=== PATIENT | female | born 2000 | race Two or more races ===

== ENCOUNTER 2019-09-01 00:12 | Emergency (ER) | payer BC ==
[~2019-09-01] VITALS: Ht 160 cm; Wt 54.4 kg
--- NOTE | 2019-09-01 01:20 | NUR ---
PT PRESENTED TO THE ER WITH A C/O PAIN AND BURNING WITH URINATION AND HEMATURIA. PT AMBULATED TO THE BATHROOM WITH A STEADY GAIT. URINE SAMPLE OBTAINED AND SENT TO LAB. PT AMBULATED TO ER 4 AND IS AWAITING EVAL BY
[2019-09-01 01:52] LABS: APPEARANCE,URINE Turbid (CLEAR); BILIRUBIN,URINE LARGE (NEGATIVE); BLOOD, URINE Large Ery/uL (NEGATIVE); COLOR,URINE Red (YELLOW); KETONES,URINE 40 (NEGATIVE); LEUKOCYTE ESTERASE ,URINE Large (NEGATIVE); NITRITE, URINE Negative (NEGATIVE); PH,URINE 5.5 (5.0-8.0); PROTEIN,URINE >=300 mg/dl (NEGATIVE); UGLUCOSE Negative (NEGATIVE)
[2019-09-01 02:09] LABS: BACTERIA,URINE Few /HPF (None Seen); RBC,URINE TOO NUMEROUS TO COUN /HPF (0-2); SQUAMOUS EPITHELIAL CELL,UR Rare /HPF (None Seen); WBC,URINE 81-100 /HPF (0-3)
[2019-09-01] MEDS ORDERED: PHENAZOPYRIDINE HCL 200 MG TABLET PO ONE (02:30)
[2019-09-01] MEDS ORDERED: NITROFURANTOIN/NITROFURAN MAC 100 MG CAPSULE PO ONE (02:30)
[2019-09-01] MEDS ORDERED: PHENAZOPYRIDINE HCL 200 MG TABLET ONE (02:32)
[2019-09-01] MEDS ORDERED: NITROFURANTOIN/NITROFURAN MAC 100 MG CAPSULE ONE (02:32)
--- NOTE | 2019-09-01 02:41 | NUR ---
Patient discharged to home in stable condition. Written and verbal after care instructions given. Patient verbalizes understanding of instruction AND RX. PT REC'D MEDICATION ORDERED PRIOR TO D/C HOME. PT TO F/U WITH H[employer]. VSS. NAD NOTED.
[2019-09-01 02:50] VITALS: BP 107/71
== END 2019-09-01 02:50 | disposition home or self-care (01) ==
LOC: ER 00:17
DX: N39.0 Urinary tract infection, site not specified (principal); R31.9 Hematuria, unspecified; F10.10 Alcohol abuse, uncomplicated; F17.200 Nicotine dependence, unspecified, uncomplicated; Y90.9 Presence of alcohol in blood, level not specified; Z71.6 Tobacco abuse counseling
CPT/HCPCS: 81000-TC; 84703-TC; 87086-TC; 87186-TC